=== PATIENT | female | born 1985 | race Caucasian/White ===

== ENCOUNTER 2017-03-21 10:46 | Emergency (ER) | payer OTHER ==
[2017-03-21 11:46] LABS: HEMOGLOBIN 10.8 gm/dl (12.3-15.3); RED BLOOD COUNT 3.46 M/UL (4.00-5.10); WHITE BLOOD COUNT 7.8 K/UL (4.5-11.0)
[2017-03-21 12:12] LABS: BUN/CREATININE RATIO 20 (0-10)
== END 2017-03-21 14:30 | disposition left against medical advice (07) ==
LOC: ER1 10:46
PROVIDERS: Emergency Medicine
DX: O99.89 Other specified diseases and conditions complicating pregnancy, childbirth and the puerperium (principal); R55 Syncope and collapse; O9A.213 Injury, poisoning and certain other consequences of external causes complicating pregnancy, third trimester; S06.9X9A Unspecified intracranial injury with loss of consciousness of unspecified duration, initial encounter; Z3A.31 31 weeks gestation of pregnancy; W18.39XA Other fall on same level, initial encounter; Y92.89 Other specified places as the place of occurrence of the external cause
CPT/HCPCS: 36415; 70450; 80053; 82550; 82553; 83874; 84484; 85025; 85379; 93005; 99284